=== PATIENT | male | born 1960 | race Caucasian/White ===

== ENCOUNTER 2016-03-22 05:57 | Inpatient (IN) | payer MEDICARE, MEDICAID ==
[~2016-03-22] VITALS: Ht 170.2 cm; Wt 87.2 kg
[~2016-03-22 05:57] MED LIST: AMLO-512 PO; CLON1TAB PO; LISI-661 PO; QUET200T PO
[2016-03-22 06:45] LABS: BASOPHILS # (AUTO) 0.02 K/uL (0.00-0.20); BASOPHILS % (AUTO) 0.3 % (0.0-2.0); EOSINOPHILS # (AUTO) 0.33 K/uL (0.00-0.70); EOSINOPHILS % (AUTO) 4.88 % (1.0-6.0); HEMATOCRIT 34.2 % (41-53); LYMPHOCYTES # (AUTO) 1.7 K/uL (1.0-4.8); LYMPHOCYTES % (AUTO) 24.7 % (22.0-44.0); MEAN CORPUSCULAR HGB CONC 35.2 G/dL (31.0-37.0); MEAN CORPUSCULAR VOLUME 97 fL (80-100); MONOCYTES # (AUTO) 0.5 K/uL (0.1-1.0); MONOCYTES % (AUTO) 7.6 % (2.0-9.0); NEUTROPHILS # (AUTO) 4.2 K/uL (1.8-7.7); NEUTROPHILS % (AUTO) 62.6 % (40.0-70.0); PLATELET COUNT (AUTO) 181 K/uL (150-450); RED BLOOD CELL COUNT(AUTO) 3.53 MIL/uL (4.50-5.90); RED CELL DISTRIBUTION WIDTH 12.8 % (11.5-14.5); WHITE BLOOD COUNT (AUTO) 6.8 K/uL (4.5-11.0)
[2016-03-22 06:54] LABS: ANION GAP 1 mmol/L (8-16); CALCIUM, TOTAL 8.5 mg/dL (8.8-10.5); CARBON DIOXIDE 32 mmol/L (22-29); CHLORIDE 104 mmol/L (98-107); CREATININE 0.96 mg/dL (0.60-1.30); GLOMERULAR FILTR. RATE CALC > 60 mL/min (>60); POTASSIUM 4.5 mmol/L (3.5-5.1); SODIUM SERUM 137 mmol/L (136-145); UREA NITROGEN, BLOOD 15 mg/dL (7-18)
[2016-03-22 06:59] LABS: ALANINE AMINOTRANSFERASE 33 U/L (12-78); ALBUMIN 3.2 g/dL (3.4-5.0); ASPARTATE AMINOTRANSFERASE 27 U/L (15-37); BILIRUBIN,TOTAL 0.2 mg/dL (0.1-1.0)
[2016-03-22] MEDS ORDERED: QUEtiapine FUMARATE 100 MG TABLET PO ONE (09:30)
[2016-03-22] MEDS ORDERED: LORazepam 2 MG TABLET PO ONE (09:30)
[2016-03-22] MEDS ORDERED: ZOLPIDEM TARTRATE 10 MG TABLET PO PRN (10:15)
[2016-03-22 20:40] VITALS: BP 136/89
[2016-03-22] MEDS: QUEtiapine FUMARATE 200 MG TABLET PO SCH (21:00)
[2016-03-22] MEDS: DIVALPROEX SODIUM 500 MG ER TABLET PO SCH (21:08)
[2016-03-23] MEDS: HALOPERIDOL 5 MG TABLET PO PRN ×2 (00:40→09:05)
[2016-03-23] MEDS: LORazepam 2 MG TABLET PO PRN ×2 (00:40→09:05)
[2016-03-23] MEDS ORDERED: -PHARMACY VACCINE NOTE- MISC ONE ×2 (04:45)
[2016-03-23] MEDS ORDERED: INFLUENZA VIRUS VACCINE QVS 2016-17 (3YR+)/PF 60 MCG/0.5 ML SYRINGE IM ONE (04:45)
[2016-03-23] MEDS: DIVALPROEX SODIUM 500 MG ER TABLET PO SCH ×3 (09:00→17:30)
[2016-03-23] MEDS: AmLODIPine BESYLATE 10 MG TABLET PO SCH (09:05)
[2016-03-23] MEDS: QUEtiapine FUMARATE 200 MG TABLET PO SCH ×2 (09:05→21:03)
[2016-03-23 09:42] VITALS: BP 151/97
[2016-03-23] MEDS ORDERED: ALBUTEROL SULFATE HFA 90 MCG/PUFF 8 GM INHALER IH PRN (15:00)
[2016-03-23] MEDS ORDERED: IBUPROFEN 400 MG TABLET PO PRN (15:00)
[2016-03-23] MEDS ORDERED: ACETAMINOPHEN 325 MG TABLET PO PRN (15:00)
[2016-03-23 16:59] VITALS: BP 148/92
[2016-03-23 21:54] VITALS: BP 142/89
[2016-03-24 07:28] LABS: CHOL/HDL RATIO 3.6 (4.2-7.3)
[2016-03-24 07:51] LABS: HEMOGLOBIN A1C 6.1 % (4.5-6.2)
[2016-03-24] MEDS: HALOPERIDOL 5 MG TABLET PO PRN (08:33)
[2016-03-24] MEDS: LORazepam 2 MG TABLET PO PRN ×2 (08:33→16:06)
[2016-03-24] MEDS: AmLODIPine BESYLATE 10 MG TABLET PO SCH (08:33)
[2016-03-24] MEDS: LISINOPRIL 10 MG TABLET PO SCH (08:34)
[2016-03-24] MEDS: QUEtiapine FUMARATE 200 MG TABLET PO SCH ×2 (08:34→20:48)
[2016-03-24] MEDS: DIVALPROEX SODIUM 500 MG ER TABLET PO SCH (08:34)
[2016-03-24 09:28] VITALS: BP 139/88
[2016-03-24 16:00] VITALS: BP 125/72
[2016-03-24] MEDS: VALPROIC ACID 250 MG/5 ML SYRUP UDCUP PO SCH (16:07)
[2016-03-25 06:20] VITALS: BP 137/62
[2016-03-25] MEDS: LORazepam 2 MG TABLET PO PRN (07:40)
[2016-03-25] MEDS: QUEtiapine FUMARATE 200 MG TABLET PO SCH ×2 (07:40→20:29)
[2016-03-25] MEDS: HALOPERIDOL 5 MG TABLET PO PRN (07:40)
[2016-03-25] MEDS ORDERED: LORazepam 2 MG/ML VIAL IM ONE (08:30)
[2016-03-25] MEDS ORDERED: DiphenhydrAMINE HCL 50 MG/ML VIAL IM ONE (08:30)
[2016-03-25] MEDS ORDERED: HALOPERIDOL LACTATE 5 MG/ML VIAL IM ONE (08:30)
[2016-03-25 09:00] VITALS: BP 128/70
[2016-03-25] MEDS: AmLODIPine BESYLATE 10 MG TABLET PO SCH (09:00)
[2016-03-25] MEDS: LISINOPRIL 10 MG TABLET PO SCH (09:00)
[2016-03-25] MEDS: VALPROIC ACID 250 MG/5 ML SYRUP UDCUP PO SCH ×2 (09:00→16:43)
[2016-03-25 16:05] VITALS: BP 132/92
[2016-03-26] MEDS: VALPROIC ACID 250 MG/5 ML SYRUP UDCUP PO SCH (07:29)
[2016-03-26] MEDS: LORazepam 2 MG TABLET PO PRN (07:30)
[2016-03-26] MEDS: LISINOPRIL 10 MG TABLET PO SCH (07:30)
[2016-03-26] MEDS: AmLODIPine BESYLATE 10 MG TABLET PO SCH (07:30)
[2016-03-26] MEDS: HALOPERIDOL 5 MG TABLET PO PRN (07:30)
[2016-03-26] MEDS: QUEtiapine FUMARATE 200 MG TABLET PO SCH (07:32)
[2016-03-26] MEDS ORDERED: VALP250 PO (12:54)
== END 2016-03-26 13:15 | disposition home or self-care (01) | DRG 885 ==
LOC: EMS 06:02 → 3EC 18:31
PROVIDERS: ADMIT Psychiatry & Neurology Psychiatry; ATTEND Psychiatry & Neurology Psychiatry
DX: F20.0 Paranoid schizophrenia (principal); D64.9 Anemia, unspecified; E11.22 Type 2 diabetes mellitus with diabetic chronic kidney disease; I12.9 Hypertensive chronic kidney disease with stage 1 through stage 4 chronic kidney disease, or unspecified chronic kidney disease; N18.9 Chronic kidney disease, unspecified; J44.9 Chronic obstructive pulmonary disease, unspecified; F17.210 Nicotine dependence, cigarettes, uncomplicated; F32.9 Major depressive disorder, single episode, unspecified; F15.90 Other stimulant use, unspecified, uncomplicated; Z28.21 Immunization not carried out because of patient refusal; Z79.899 Other long term (current) drug therapy; Z82.49 Family history of ischemic heart disease and other diseases of the circulatory system; Z83.3 Family history of diabetes mellitus; Z91.5 Personal history of self-harm; Z91.14 Patient's other noncompliance with medication regimen
CPT/HCPCS: 83036; 83540; 83550; 84443; 99285; G0480; J1200; J1630; J2060; J3535

== ENCOUNTER 2016-09-10 12:42 | Emergency (ER) | payer MEDICARE, OTHER ==
[~2016-09-10] VITALS: Ht 170.2 cm; Wt 100.0 kg
[~2016-09-10 12:42] MED LIST changes: -CLON1TAB PO; +VALP250 PO
[2016-09-10 13:02] LABS: GLUCOSE,POINT OF CARE 133 MG/DL (70-110)
[2016-09-10] MEDS ORDERED: TRAZ-147 PO (13:23)
[2016-09-10] MEDS ORDERED: LORazepam 1 MG TABLET PO ONE ×2 (14:30→15:30)
[2016-09-10 16:30] VITALS: BP 118/57
== END 2016-09-10 16:47 | disposition home or self-care (01) ==
LOC: EMS 12:43
DX: F41.9 Anxiety disorder, unspecified (principal); F20.9 Schizophrenia, unspecified; F32.9 Major depressive disorder, single episode, unspecified; F17.210 Nicotine dependence, cigarettes, uncomplicated; I10 Essential (primary) hypertension; E11.9 Type 2 diabetes mellitus without complications
CPT/HCPCS: 82962; 99284

== ENCOUNTER 2016-09-23 07:43 | Emergency (ER) | payer MEDICARE, OTHER ==
[~2016-09-23] VITALS: Ht 170.2 cm; Wt 99.0 kg
[~2016-09-23 07:43] MED LIST changes: +TRAZ-147 PO
[2016-09-23 07:57] LABS: GLUCOSE,POINT OF CARE 137 MG/DL (70-110)
[2016-09-23 08:43] LABS: BASOPHILS % (AUTO) 0.4 % (0.0-2.0); EOSINOPHILS % (AUTO) 1.8 % (1.0-6.0); HEMATOCRIT 37.5 % (41-53); HEMOGLOBIN 13.2 g/dL (13.5-17.5); LYMPHOCYTES # (AUTO) 0.9 K/uL (1.0-4.8); LYMPHOCYTES % (AUTO) 16.3 % (22.0-44.0); MEAN CORPUSCULAR HEMOGLOBIN 33.2 pg (26.0-34.0); MEAN CORPUSCULAR HGB CONC 35.2 G/dL (31.0-37.0); MEAN CORPUSCULAR VOLUME 94 fL (80-100); MONOCYTES # (AUTO) 0.3 K/uL (0.1-1.0); MONOCYTES % (AUTO) 4.4 % (2.0-9.0); NEUTROPHILS # (AUTO) 4.5 K/uL (1.8-7.7); NEUTROPHILS % (AUTO) 77.1 % (40.0-70.0); PLATELET COUNT (AUTO) 141 K/uL (150-450); RED BLOOD CELL COUNT(AUTO) 3.97 MIL/uL (4.50-5.90); RED CELL DISTRIBUTION WIDTH 12.8 % (11.5-14.5); WHITE BLOOD COUNT (AUTO) 5.8 K/uL (4.5-11.0)
[2016-09-23 08:53] LABS: ANION GAP 11 mmol/L (8-16); CALCIUM, TOTAL 9.4 mg/dL (8.8-10.5); CARBON DIOXIDE 24 mmol/L (22-29); CHLORIDE 103 mmol/L (98-107); CREATININE 1.29 mg/dL (0.60-1.30); GLOMERULAR FILTR. RATE CALC 58 mL/min (>60); SODIUM SERUM 138 mmol/L (136-145); UREA NITROGEN, BLOOD 16 mg/dL (7-18)
[2016-09-23 08:58] LABS: ALANINE AMINOTRANSFERASE 27 U/L (12-78); ALBUMIN 4.2 g/dL (3.4-5.0); ASPARTATE AMINOTRANSFERASE 20 U/L (15-37); BILIRUBIN,TOTAL 0.7 mg/dL (0.1-1.0); TOTAL PROTEIN, SERUM 7.8 g/dL (6.4-8.2)
[2016-09-23] MEDS ORDERED: LORazepam 2 MG/ML VIAL IM ONE (09:45)
[2016-09-23 11:40] VITALS: BP 145/89
== END 2016-09-23 11:48 | disposition home or self-care (01) ==
LOC: EMS 07:44
DX: F41.9 Anxiety disorder, unspecified (principal); F20.9 Schizophrenia, unspecified; F31.9 Bipolar disorder, unspecified; F17.210 Nicotine dependence, cigarettes, uncomplicated; E11.9 Type 2 diabetes mellitus without complications; I10 Essential (primary) hypertension; F19.90 Other psychoactive substance use, unspecified, uncomplicated
CPT/HCPCS: 36415; 80053; 80307; 82962; 85025; 96372; 99284; G0480; J2060; 96374